=== PATIENT | male | born 1975 | race African-American/Black ===

== ENCOUNTER 2017-11-29 06:33 | Emergency (ER) | payer MEDICARE, MEDICAID ==
[~2017-11-29] VITALS: Ht 172.7 cm; Wt 129.0 kg
[~2017-11-29 06:33] MED LIST: COROTSUS OT
[2017-11-29 06:38] VITALS: BP 137/88
[2017-11-29] MEDS ORDERED: NEOM10DR45 OT (07:23)
== END 2017-11-29 07:34 | disposition home or self-care (01) ==
LOC: ER 06:33
DX: H60.502 Unspecified acute noninfective otitis externa, left ear (principal); Z98.890 Other specified postprocedural states; Z79.899 Other long term (current) drug therapy
CPT/HCPCS: 99283

== ENCOUNTER 2020-11-02 02:14 | Emergency (ER) | payer MEDICARE, MEDICAID ==
[~2020-11-02] VITALS: Ht 172.7 cm; Wt 113.8 kg
[2020-11-02 02:45] LABS: BASOPHILS % (AUTO) 0.5 % (0-1); EOSINOPHILS # (AUTO) 0.1 X10'3 (0-0.9); EOSINOPHILS % (AUTO) 0.8 % (0-6); HEMATOCRIT 47.7 % (42.0-52.0); HEMOGLOBIN 16.1 g/dl (14.0-17.9); LYMPHOCYTES # (AUTO) 2.3 X10'3 (1.1-4.8); MEAN CORPUSCULAR HEMOGLOBIN 29.3 PG (27.0-31.0); MEAN CORPUSCULAR HGB CONC 33.8 g/dL (33.0-36.5); MEAN CORPUSCULAR VOLUME 86.6 FL (78-98); MEAN PLATELET VOLUME 9.3 FL (7.4-10.4); MONOCYTES # (AUTO) 0.8 X10'3 (0-0.9); MONOCYTES % (AUTO) 8.7 % (2-12); NEUTROPHILS # (AUTO) 5.7 X10'3 (1.8-7.7); PLATELET COUNT 276 X10'3 (140-440); RED BLOOD COUNT 5.51 X10'6 (4.70-6.10); RED CELL DISTRIBUTION WIDTH 13.1 % (11.5-14.5)
[2020-11-02 02:53] LABS: ALANINE AMINOTRANSFERASE 26 U/L (12-78); ALBUMIN 3.8 G/DL (3.4-5.0); ALKALINE PHOSPHATASE 60 IU/L (46-116); ANION GAP 8 (8-16); ASPARTATE AMINO TRANSFERASE 14 U/L (10-37); BILIRUBIN,TOTAL 0.3 MG/DL (0.1-1.0); BLOOD UREA NITROGEN 21 MG/DL (7-18); BUN/CREATININE RATIO 20.4 (5.4-32.0); CALCIUM 9.3 MG/DL (8.5-10.1); CHLORIDE 104 MMOL/L (99-107); CREATININE 1.03 MG/DL (0.60-1.10); GLUCOSE 168 MG/DL (70-104); POTASSIUM 3.8 MMOL/L (3.5-5.1); SODIUM 142 MMOL/L (135-145); TOTAL CARBON DIOXIDE 29.8 MMOL/L (24-32); TOTAL PROTEIN 7.6 G/DL (6.4-8.2); eGFR > 90 ML/MIN
[2020-11-02 03:00] LABS: TROPONIN I < 0.04 NG/ML (0.0-0.05)
[2020-11-02 03:47] VITALS: BP 141/83
== END 2020-11-02 03:49 | disposition home or self-care (01) ==
LOC: ER 02:14
DX: R07.89 Other chest pain (principal); Z98.890 Other specified postprocedural states; Z60.2 Problems related to living alone; Z79.2 Long term (current) use of antibiotics
CPT/HCPCS: 36415; 71045; 80053; 83735; 83880; 84484; 85025; 93005; 99285

== ENCOUNTER 2024-07-29 05:40 | Emergency (ER) | payer MEDICARE, MEDICAID ==
[~2024-07-29] VITALS: Ht 170.2 cm; Wt 126.9 kg
[2024-07-29 06:36] VITALS: TEMP 98.4
[2024-07-29] MEDS: pantoprazole 40mg Tablet.DR PO SCH (07:10)
[2024-07-29 08:32] LABS: EOSINOPHILS % (AUTO) 0 % (0-6); MEAN CORPUSCULAR VOLUME 82.7 FL (78-98); NEUTROPHILS # (AUTO) 15.4 X10'3 (1.8-7.7)
[2024-07-29 08:36] LABS: BASOPHILS % (AUTO) 0.2 % (0-1); HEMATOCRIT 46.9 % (42.0-52.0); HEMOGLOBIN 15.9 g/dl (14.0-17.9); LYMPHOCYTES # (AUTO) 0.7 X10'3 (1.1-4.8); LYMPHOCYTES % (AUTO) 4.3 % (21-51); MEAN CORPUSCULAR HEMOGLOBIN 28.1 PG (27.0-31.0); MEAN CORPUSCULAR HGB CONC 33.9 g/dL (33.0-36.5); MEAN PLATELET VOLUME 9.1 FL (7.4-10.4); MONOCYTES # (AUTO) 0.9 X10'3 (0-0.9); MONOCYTES % (AUTO) 5.2 % (2-12); NEUTROPHILS % (AUTO) 90.3 % (42-75); PLATELET COUNT 234 X10'3 (140-440); RED BLOOD COUNT 5.67 X10'6 (4.70-6.10); RED CELL DISTRIBUTION WIDTH 13.5 % (11.5-14.5)
[2024-07-29 08:46] LABS: BILIRUBIN,URINE NEGATIVE (Neg); CLARITY,URINE CLEAR (Clear); COLOR,URINE YELLOW (Yellow); GLUCOSE, URINE 500 mg/dl (Neg); KETONES,URINE 15 mg/dl (Neg); LEUKOCYTE ESTERASE ,URINE NEGATIVE (Neg); NITRITES, URINE NEGATIVE (Neg); OCCULT BLOOD,URINE SMALL (Neg); PROTEIN,URINE TRACE mg/dl (Neg); UROBILINOGEN,URINE 0.2 E.U/dL (0.2-1.0)
[2024-07-29 08:47] LABS: UA COLLECTION TYPE CLN CATCH MIDSTREAM
[2024-07-29 08:58] LABS: ALANINE AMINOTRANSFERASE 31 U/L (12-78); ALBUMIN 4.1 G/DL (3.4-5.0); ALKALINE PHOSPHATASE 60 IU/L (46-116); ANION GAP 11 (8-16); ASPARTATE AMINO TRANSFERASE 23 U/L (10-37); BILIRUBIN,TOTAL 0.5 MG/DL (0.1-1.0); BLOOD UREA NITROGEN 14 MG/DL (7-18); BUN/CREATININE RATIO 17.5 (10.0-20.0); CALCIUM 9.3 MG/DL (8.5-10.1); CHLORIDE 95 MMOL/L (99-107); GLUCOSE 223 MG/DL (70-104); LIPASE 22 U/L (16-77); POTASSIUM 4.1 MMOL/L (3.5-5.1); SODIUM 128 MMOL/L (135-145); TOTAL CARBON DIOXIDE 21.9 MMOL/L (24-32); TOTAL PROTEIN 8.1 G/DL (6.4-8.2); eCRCL 103 ML/MIN; eGFR > 90 ML/MIN
[2024-07-29 08:59] LABS: BACTERIA,URINE NONE SEEN /HPF (Neg); HYALINE CASTS 0-3 /LPF (NEGATIVE); SQUAMOUS EPITHELIAL CELL,UR NONE SEEN /LPF (FEW); WBC,URINE NONE SEEN /HPF (0-4)
[2024-07-29] MEDS ORDERED: iohexol 300mg/ml 100ml inj. ONE (09:27)
[2024-07-29] MEDS ORDERED: PANT-47 PO (10:14)
[2024-07-29 10:42] VITALS: BP 145/87; PULSE 94; RESP 18; O2SAT 96
== END 2024-07-29 10:46 | disposition home or self-care (01) ==
LOC: ER 05:41
DX: K21.9 Gastro-esophageal reflux disease without esophagitis (principal); E11.9 Type 2 diabetes mellitus without complications; Z79.899 Other long term (current) drug therapy; Z60.2 Problems related to living alone
CPT/HCPCS: 36415; 74177; 80053; 81001; 83690; 84484; 85025; 99285; Q9967

== ENCOUNTER 2024-12-21 10:36 | Outpatient (CLI) | payer MEDICARE, MEDICAID ==
[~2024-12-21 10:36] MED LIST changes: +PANT-47 PO
--- NOTE | 2024-12-21 15:22 | RADIOLOGY REPORT ---
INDICATION: ABNORMAL LEVELS OF OTHER SERUM ENZYMES TECHNIQUE: Multiple real-time sonographic images of the abdomen were obtained. COMPARISON: CT scan of the abdomen pelvis performed on 07/29/2024. FINDINGS: The liver is increased in echogenicity. The liver measures 16.6 cm. No intrahepatic biliar y ductal dilatation is noted. The gallbladder wall measures 0.7 cm. Multiple gallstones. Common bile duct obscured. No pericholec ystic fluid is noted. Negative sonographic Lake's sign. The right kidney measures 11.7 cm. No hydronephrosis. The left kidney measures 13.0 cm. No hydronep hrosis. The spleen measures 12.7 cm, within normal limits. The echogenicity is within normal limits. The pancreas is not well visualized due to obscuration from bowel gas. The visualized portions of the IVC and aorta are grossly unremarkable. IMPRESSION: 1. Hepatic steatosis. 2. Gallstones. Gallbladder wall thickening measuring 0.7 cm. Negative sonographic lake's sign. If t here is concern for acute cholecystitis, nuclear medicine HIDA scan is recommended.
== END 2024-12-21 23:59 | disposition home or self-care (01) ==
LOC: RAD 10:36
DX: K76.0 Fatty (change of) liver, not elsewhere classified (principal); K80.20 Calculus of gallbladder without cholecystitis without obstruction; K82.8 Other specified diseases of gallbladder; R74.8 Abnormal levels of other serum enzymes
CPT/HCPCS: 76700